=== PATIENT | female | born 1990 | race Caucasian/White ===

== ENCOUNTER 2025-03-17 05:11 | Emergency (ER) | payer OTHER ==
[~2025-03-17] VITALS: Ht 167.6 cm; Wt 166.9 kg
[2025-03-17 07:39] LABS: KETONE, URINE AUTO RFX NEGATIVE (NEGATIVE); NITRITE, URINE AUTO RFX NEGATIVE (NEGATIVE); RBC, URINE AUTO RFX 0 /HPF (0-3); SQUAM EPITHELIAL CELL UR AURFX 4 /HPF (0-6); WBC, URINE AUTO RFX 2 /HPF (0-3)
[2025-03-17 09:10] LABS: LEUKOCYTE ESTERASE UR AUTO RFX TRACE (NEGATIVE)
[2025-03-17 11:22] VITALS: TEMP 99.1
[2025-03-17] MEDS ORDERED: KETO-204 PO (11:31)
[2025-03-17] MEDS: KETOROLAC 30 MG/ML 1 ML VIAL IM ONE (11:49)
[2025-03-17 12:13] VITALS: BP 159/90; O2SAT 99
== END 2025-03-17 12:21 | disposition home or self-care (01) ==
LOC: M ED 05:11
DX: S80.01XA Contusion of right knee, initial encounter (principal); W10.8XXA Fall (on) (from) other stairs and steps, initial encounter; Z79.899 Other long term (current) drug therapy; Y92.9 Unspecified place or not applicable; Y93.89 Activity, other specified; Y99.9 Unspecified external cause status
CPT/HCPCS: 73564; 81001; 87086; 96372; 99284; J1885

== ENCOUNTER 2025-05-02 00:12 | Emergency (ER) | payer OTHER ==
[~2025-05-02] VITALS: Ht 167.6 cm; Wt 154.6 kg
[~2025-05-02 00:12] MED LIST: KETO-204 PO
[2025-05-02 00:50] LABS: BASO # 0.1 10^3/uL (0.0-0.2); BASO % 0.6 % (0.0-1.0); EOS # 0.2 10^3/uL (0.0-0.5); EOS % 1.9 % (0.0-3.0); LYMPH # 1.8 10^3/uL (1.5-5.0); LYMPH % 21.4 % (24.0-44.0); MONO # 0.6 10^3/uL (0.0-0.8); MONO % 6.9 % (2.0-8.0); NEUTROPHILS # 5.6 10^3/uL (1.5-8.5); NEUTROPHILS % 68.7 % (36.0-66.0); PLATELET COUNT, AUTOMATED 332 10^3/uL (150-450)
[2025-05-02 01:20] LABS: ALT/SGPT 21 U/L (7.0-40); AST/SGOT 20 U/L (<34); CALCIUM LEVEL 8.6 MG/DL (8.5-10.1); CARBON DIOXIDE LEVEL 26 MMOL/L (20-31); CHLORIDE LEVEL 104 MMOL/L (98-107); CREATININE FOR GFR 0.78 MG/DL (0.55-1.30); GLOMERULAR FILTRATION RATE > 90.0 (>60); POTASSIUM SERUM 3.6 MMOL/L (3.5-5.1); SODIUM LEVEL 139 MMOL/L (136-145)
[2025-05-02 09:01] VITALS: BP 124/92
[2025-05-02 09:02] VITALS: TEMP 98.2; O2SAT 98
[2025-05-02] MEDS ORDERED: HYDR25OIN TOP (09:12)
[2025-05-02 09:23] LABS: KETONE, URINE AUTO RFX NEGATIVE (NEGATIVE); LEUKOCYTE ESTERASE UR AUTO RFX NEGATIVE (NEGATIVE); MUCUS, URINE RFX LARGE (NEGATIVE); NITRITE, URINE AUTO RFX NEGATIVE (NEGATIVE); RBC, URINE AUTO RFX 1 /HPF (0-3); SQUAM EPITHELIAL CELL UR AURFX 8 /HPF (0-6); WBC, URINE AUTO RFX 2 /HPF (0-3)
== END 2025-05-02 09:16 | disposition home or self-care (01) ==
LOC: M ED 00:12
DX: O26.891 Other specified pregnancy related conditions, first trimester (principal); R10.21 Pelvic and perineal pain right side; D64.9 Anemia, unspecified; L20.9 Atopic dermatitis, unspecified; Z79.899 Other long term (current) drug therapy; Z3A.01 Less than 8 weeks gestation of pregnancy